=== PATIENT | female | born 1985 | race Hispanic/Latino ===

== ENCOUNTER → 2025-06-02 | Day surgery (SDC) | payer BC ==
[2025-06-01 09:32] LABS: BASOPHILS % 0.4 % (0.0-1.0); EOSINOPHILS % 2.8 % (0.0-6.0); LYMPHOCYTES % 29.8 % (18.0-39.1); MONOCYTES % 9.5 % (4.4-11.3); NEUTROPHILS % 57.4 % (38.7-80.0); RED CELL DISTRIBUTION WIDTH 16.9 % (11.7-14.4)
[2025-06-01 10:33] LABS: EST GLOMERULAR FILTRATION RATE 114 ML/MIN (>=60)
[~2025-06-02] MED LIST: ACETAMINOPHEN 1000 MG/100 ML 100 ML IV ONE; DICYCLOMINE HCL20 MG PO; FENTANYL CITRATE/PF 100MCG/2 ML INJ ONE; LIDOCAINE HCL 2% LOCAL INJ 5 ML SDV VIAL INJ ONE; MIDAZOLAM HCL 2 MG/2 ML VIAL ONE; NEXIUM40 MG PO; ONDANSETRON HCL 4 MG ORAL DISINTEGRATING TAB ONE; ONDANSETRON ODT8 MG PO; PEPCID AC10 MG PO; PROPOFOL IV EMULSION 10 MG/ML 20 ML VIAL ONE; ROCURONIUM BROMIDE 1 ML IV ONE; SEVOFLURANE INHAL SOLN 250 ML PEN BTL ONE; STOOL SOFTENER50 MG PO; SUGAMMADEX SODIUM 200 MG/2 ML VIAL IV ONE; ULTRAM 50MG50 MG PO
[2025-06-02] MEDS: LACTATED RINGER'S 1,000 ML ONE (06:48)
[2025-06-02] MEDS: CEFAZOLIN SODIUM 2 GM ONE (06:48)
[2025-06-02 09:15] VITALS: BP 126/71; PULSE 57; RESP 16; O2SAT 98
[2025-06-02] MEDS: ONDANSETRON HCL 4 MG ORAL DISINTEGRATING TAB PO ONE ×2 (09:18→09:22)
== END | disposition home or self-care (01) ==
LOC: OR 05:35
PROVIDERS: ATTEND Surgery
DX: K80.10 Calculus of gallbladder with chronic cholecystitis without obstruction (principal); K21.9 Gastro-esophageal reflux disease without esophagitis; F17.210 Nicotine dependence, cigarettes, uncomplicated; E66.811 Obesity, class 1; Z79.899 Other long term (current) drug therapy; Z88.8 Allergy status to other drugs, medicaments and biological substances; Z68.32 Body mass index [BMI] 32.0-32.9, adult; Z01.812 Encounter for preprocedural laboratory examination
CPT/HCPCS: 36415; 80053; 84702; 85025; 88304; J2003; J2250; Q0162